=== PATIENT | male | born 1960 | race African-American/Black ===

== ENCOUNTER 2020-09-14 12:26 | Emergency (ER) | payer OTHER ==
[~2020-09-14] VITALS: Ht 175.3 cm; Wt 79.4 kg
[2020-09-14] MEDS ORDERED: NORCO 5-325 TA1 EAC2 PO (15:09)
[2020-09-14] MEDS ORDERED: IBUPROFEN 800800 M1 PO (15:09)
[2020-09-14 15:34] VITALS: BP 160/103
--- NOTE | 2020-09-15 08:25 | EKG ---
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1960 Requested By: Starla Guadalupe Order Number: [id number] Reading MD: Oc Espinal Measurements Intervals [place] Rate: 77 P: 66 [place]: 187 QRS: -10 QRSD: 90 T: 47 QT: 400 QTc: 453 Interpretive Statements Sinus rhythm Multiple ventricular premature complexes Low voltage, precordial leads Probable anteroseptal infarct, old Baseline wander in lead(s) I,aVR,aVL No previous ECG available for comparison Electronically Signed On 09-15-2020 8:25:15 CDT by Oc Espinal [email or web address] <ELECTRONICALLY SIGNED> By: Oc Espinal MD, FACC 09/15/20 0825 1410 141 Oc Espinal MD, FAC /EPI
== END 2020-09-14 15:37 | disposition home or self-care (01) ==
LOC: M.ERS 12:26
DX: S16.1XXA Strain of muscle, fascia and tendon at neck level, initial encounter (principal); S29.012A Strain of muscle and tendon of back wall of thorax, initial encounter; S00.01XA Abrasion of scalp, initial encounter; M25.512 Pain in left shoulder; F17.210 Nicotine dependence, cigarettes, uncomplicated; W10.8XXA Fall (on) (from) other stairs and steps, initial encounter; Y93.89 Activity, other specified; Y92.89 Other specified places as the place of occurrence of the external cause; Y99.8 Other external cause status

== ENCOUNTER 2021-06-02 01:54 | Emergency (ER) | payer OTHER ==
[~2021-06-02] VITALS: Ht 175.3 cm; Wt 77.1 kg
[~2021-06-02 01:54] MED LIST: IBUPROFEN 800800 M1 PO; NORCO 5-325 TA1 EAC2 PO
[2021-06-02 04:30] VITALS: BP 128/86
--- NOTE | 2021-06-02 14:25 | EKG ---
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1960 Requested By: Prerna oG Order Number: [id number] MD: Ervin Escalante Measurements Intervals [place] Rate: 81 P: 63 [place]: 170 QRS: -21 QRSD: 98 T: 35 QT: 385 QTc: 447 Interpretive Statements Sinus rhythm Borderline left axis deviation Possible anteroseptal infarct, old Minimal ST elevation, inferior leads Compared to ECG 09/14/2020 14:10:27 ST (T wave) deviation now present Ventricular premature complex(es) no longer present Myocardial infarct finding still present Electronically Signed On 06-02-2021 14:25:08 CDT by Ervin Escalante [email or web address] <ELECTRONICALLY SIGNED> By: Ervin Escalante MD, [facility] 06/02/21 1425 2 2 Ervin Escalante MD, [facility] /EPI
== END 2021-06-02 04:31 | disposition home or self-care (01) ==
LOC: M.ERS 01:54
DX: S13.8XXA Sprain of joints and ligaments of other parts of neck, initial encounter (principal); W10.8XXA Fall (on) (from) other stairs and steps, initial encounter; Y93.89 Activity, other specified; Y92.89 Other specified places as the place of occurrence of the external cause; Y99.8 Other external cause status